=== PATIENT | female | born 1965 | race Caucasian/White ===

== ENCOUNTER 2018-06-11 17:41 | Emergency (ER) | payer BC ==
[~2018-06-11] VITALS: Ht 167.6 cm; Wt 110.2 kg
[2018-06-11 17:54] VITALS: Ht 167.6 cm; Wt 110.2 kg
[2018-06-11 19:54] VITALS: BP 118/85
== END 2018-06-11 20:10 | disposition home or self-care (01) ==
LOC: ED 17:41
DX: M79.622 Pain in left upper arm (principal); V49.88XA Car occupant (driver) (passenger) injured in other specified transport accidents, initial encounter; Y93.I9 Activity, other involving external motion; Y92.413 State road as the place of occurrence of the external cause; Y99.8 Other external cause status